=== PATIENT | female | born 1995 | race Caucasian/White ===

== ENCOUNTER 2016-08-14 12:23 | Emergency (ER) | payer OTHER | END 2016-08-14 13:37 | disposition home or self-care (01) | LOC: FER 12:23 | DX: T78.49XA Other allergy, initial encounter (principal); L50.0 Allergic urticaria; T20.22XA Burn of second degree of lip(s), initial encounter; Z88.6 Allergy status to analgesic agent | CPT/HCPCS: J2930 ==